=== PATIENT | female | born 1955 | race Caucasian/White ===

== ENCOUNTER → 2022-06-04 09:00 | Outpatient (BNVA) | payer MEDICARE, BC, SELFPAY | PROVIDERS: PCP Family Medicine; Visit Provider Nurse Practitioner Family | DX: R06.83 Snoring (principal); R40.0 Somnolence; M62.838 Other muscle spasm; Z79.899 Other long term (current) drug therapy | CPT/HCPCS: 99202 ==

== ENCOUNTER → 2022-07-06 12:56 | Outpatient (REF) | payer MEDICARE, SELFPAY | LOC: HO.SL 12:56 | PROVIDERS: PCP Family Medicine; Visit Provider Nurse Practitioner Family | DX: R06.83 Snoring (principal); G47.33 Obstructive sleep apnea (adult) (pediatric); G47.10 Hypersomnia, unspecified | CPT/HCPCS: 95806 ==

== ENCOUNTER → 2022-12-07 10:38 | Outpatient (BNVA) | payer MEDICARE, SELFPAY | PROVIDERS: PCP Family Medicine; Visit Provider Nurse Practitioner Family | DX: M62.838 Other muscle spasm (principal); R06.83 Snoring; G47.30 Sleep apnea, unspecified | CPT/HCPCS: Q3014 ==

== ENCOUNTER → 2024-04-19 01:32 | Outpatient (BNV) | payer MEDICARE, SELFPAY | PROVIDERS: Visit Provider Psychiatry & Neurology Neurology | DX: G47.30 Sleep apnea, unspecified (principal); G47.10 Hypersomnia, unspecified; G35 Multiple sclerosis; R40.0 Somnolence | CPT/HCPCS: 95810 ==

== ENCOUNTER → 2024-04-19 19:30 | Outpatient (REF) | payer MEDICARE, SELFPAY | LOC: HO.SL 19:30 | PROVIDERS: Visit Provider Nurse Practitioner Family | DX: G47.30 Sleep apnea, unspecified (principal); G47.10 Hypersomnia, unspecified; R40.0 Somnolence; G35 Multiple sclerosis | CPT/HCPCS: 95810 ==

== ENCOUNTER 2024-07-05 07:41 | Outpatient (AMB) | payer MEDICARE, SELFPAY ==
--- NOTE | 2024-07-05 07:36 | A.OFFVIS_ITS ---
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 she is doing well an dis compliant . It helps her night time sleep and has improved her daytime sleepiness. The home sleep study result was significant for a mild degree of sleep apnea. The AHI was 11/hr and oxygen yesica was 88%. Patient takes gabapentin 150-300 mg, PRN for leg spasm and neuropathy, it usually helps her sleep better. she stopped baclofen ? Pt is followed by [facility] for MS management. [facility] Surgical History Hx of appendectomy Family History Father No problems noted. Mother Asthma Social History Household Members: Spouse Housing: House Alcohol intake: current Patient Tobacco Use Status: Never used Tobacco Review of Systems ENT Reports Normal hearing present Neuro Reports Normal hearing present Physical Exam Vital Signs: Last Vital Signs Pulse 84 07/05/24 07:45 BP 118/70 07/05/24 07:45 Pulse Ox 100 07/05/24 07:45 Oxygen Delivery Method Room Air 07/05/24 07:45 BMI result Body Mass Index 25.4 Const General: cooperative and tired appearing Orientation/consciousness: patient oriented x3 Resp Effort & Inspection: normal respiratory effort and able to speak in complete sentences Neuro Other: left foot drop wears a AFO and gait - high steppage General: patient oriented x3 Cranial nerves: Yes Normal facial strength present and Yes Normal hearing present Deep tendon reflexes (DTR's): Right triceps reflex intensity grade: 2+, Left tr iceps reflex intensity grade: 2+, Rt Biceps (C5, C6): 2+, Left biceps reflex intensity grade: 2+, Right brachioradialis reflex intensity grade: 2+, Left brachioradialis reflex intensity grade: 2+, Right patellar reflex intensity grade: 3+ and Left patellar reflex intensity grade: 3+ Assessment & Plan Assessment & Plan (1) Sleep apnea: Comment: Mild degree of sleep apnea. The AHI was 11/hr and oxygen yesica was 88%. Code(s): G47.30 - Sleep apnea, unspecified Category: Medical (2) Muscle spasm of left lower extremity: Code(s): M62.838 - Other muscle spasm Category: Medical (3) Multiple sclerosis: Code(s): G35 - Multiple sclerosis Category: Medical Plan Continue AutoPAP 5-20 cm of water . Compliance stress I suggested to take gabpentin 300mg qhs more consistently F/u with MS center Coding Level of Care Code Est Pt Level 4 (99929) Diagnoses Sleep apnea G47.30 Muscle spasm of left lower extremity M62.838 Multiple sclerosis G35
[2024-07-05 07:45] VITALS: BP 118/70; PULSE 84; O2SAT 100; BMI 25.4
== END 2024-07-05 08:05 | disposition home or self-care (01) ==
PROVIDERS: Visit Provider Psychiatry & Neurology Neurology
DX: G47.30 Sleep apnea, unspecified (principal); M62.838 Other muscle spasm; G35 Multiple sclerosis
CPT/HCPCS: 99214

== ENCOUNTER → 2024-07-05 07:41 | Outpatient (BNVA) | payer MEDICARE, SELFPAY | PROVIDERS: Visit Provider Psychiatry & Neurology Neurology | DX: G47.30 Sleep apnea, unspecified (principal); M62.838 Other muscle spasm; G35 Multiple sclerosis | CPT/HCPCS: 99212 ==

== ENCOUNTER 2024-12-13 10:23 | Outpatient (AMB) | payer MEDICARE, SELFPAY ==
[2024-12-13 10:47] VITALS: PULSE 83; O2SAT 98; BMI 25.4
--- NOTE | 2024-12-13 10:47 | A.OFFVIS_ITS ---
Vital Signs 12/13/24 10:47 Height 5 ft 3 in Weight 143 lb 4 oz BMI 25.4 Pulse 83 Pulse Source Pulse Oximeter Pulse Oximetry (%) 98 Oxygen Delivery Method Room Air Intake Visit Reasons: follow up GHANSHYAM Intake Note: Patient present follow up Sleep/muscle spasms. Compliance in chart Allergies penicillin G Allergy (Mild, Verified 12/13/24 10:50) Hives Sulfa (Sulfonamide Antibiotics) Allergy (Mild, Verified 12/13/24 10:50) Hives HPI Comments Details: 69 y/o female patient presents for follow up of neuropathy. HST was significant for mild sleep apnea, AHI was 11 and Oxygen [place] to 88%. She is on AutoPAP 5-20 cm of water and uses her CPAP daily. She is doing well with her sleep compliance. She c/o spasms of the L. feet, calf and thigh muscle, she is taking 300mg Gabapentin and 10mg Baclofen TID. She says the Baclofen and Tizanidine previously tried is not effective. The Gabapentin helps her to sleep at night and the CPAP use has improved her daytime fatigue. She is up after 2 hours of sleep, and she gets up twice a night. She walks for about 10 min and stretches her legs as needed mainly the L>R. She has foot drop, heat and cold trigger her L. leg to spasm. Her MRI did show lesions on the brain and she was diagnosed with MS in The home sleep study result was significant for a mild degree of sleep apnea. She cleans her mask, changes the filters and fills the reservoir with water as needed. Pt is followed by [facility] for MS management, she doesn't want to do infusion at this time. Risk vs. Benefit, she thinks the SE were not worth the therapuetic results. [facility] V[facility]ctor Sherman PCP - [facility] Surgical History Hx of appendectomy Family History Father No problems noted. Mother Asthma Social History Household Members: Spouse Housing: House Alcohol intake: current Patient Tobacco Use Status: Never used Tobacco Review of Systems ENT Reports Normal hearing present Neuro Reports Normal hearing present Physical Exam Vital Signs: Last Vital Signs Pulse 83 12/13/24 10:47 Pulse Ox 98 12/13/24 10:47 Oxygen Delivery Method Room Air 12/13/24 10:47 BMI result Body Mass Index 25.4 Const General: cooperative and tired appearing Orientation/consciousness: patient oriented x3 Resp Effort & Inspection: normal respiratory effort and able to speak in complete sentences Neuro Other: left foot drop wears a AFO and gait - high steppage General: patient oriented x3 Cranial nerves: Yes Normal facial strength present and Yes Normal hearing present Deep tendon reflexes (DTR's): Right triceps reflex intensity grade: 2+, Left triceps reflex intensity grade: 2+, Rt Biceps (C5, C6): 2+, Left biceps reflex intensity grade: 2+, Right brachioradialis reflex intensity grade: 2+, Left brachioradialis reflex intensity grade: 2+, Right patellar reflex intensity grade: 3+ and Left patellar reflex intensity grade: 3+ Results Reviewed Results Reviewed: GHANSHYAM Compliance Report 09/2024- 12/2024 >4 hours use 88 days and 7hours and 30 min Press [id number] Leaks 7.2 AHI is 1.0 Assessment & Plan Assessment & Plan (1) Fatigue due to sleep pattern disturbance: Code(s): R53.83 - Other fatigue; G47.9 - Sleep disorder, unspecified Category: Medical (2) Muscle spasm of left lower extremity: Code(s): M62.838 - Other muscle spasm Category: Medical Plan PLMD / RLS/ Spasms of L leg, Increase Gabapentin from 300mg PO at bedtime to 400mg PO at bedtime. MS MRI shows White matter lesions on the brain, she is followed by the [facility]. Labs to r/o Deficiencies? Folate B6 / B12 / D3- Iron Foot drop? Will consider Biopsy of L. gastrocnemius. Orders: Orders Vitamin D 25-OH Total Today G47.9 - Sleep disorder, unspecified, R53.83 - Other fatigue Ferritin Today G47.9 - Sleep disorder, unspecified, R53.83 - Other fatigue Homocysteine Today G47.9 - Sleep disorder, unspecified, R53.83 - Other fatigue Vitamin B12 and Folate Today G47.9 - Sleep disorder, unspecified, R53.83 - O ther fatigue IRON PROFILE Today G47.9 - Sleep disorder, unspecified, R53.83 - Other fatigue Methylmalonic Acid Today G47.9 - Sleep disorder, unspecified, R53.83 - Other fatigue Comprehensive Met. Panel Today G47.9 - Sleep disorder, unspecified, R53.83 - Other fatigue Complete Blood Count no Diff Today G47.9 - Sleep disorder, unspecified, R53.83 - Other fatigue Medications: New gabapentin Take this 100mg capsule along with the 300mg for a total of 400mg PO daily at bedtime. 100 mg PO BEDTIME 90 days 90 caps 0RF Leg spasms MDD 400mg G47.9 - Sleep disorder, unspecified, M62.838 - Other muscle spasm, R53.83 - Other fatigue Patient Instructions: Sleep Hygiene sleep in a dark cool environment temperatures should be below 68 degrees and no devices in bed. May read in bed, try weighted blanket for spasm or cramps. Start Magnesium 400mg daily at bedtime and Pyridoxine 200mg daily at bedtime once your labs are completed. F[place] [facility] [place] [facility] for you. Will consider biopsy Coding Level of Care Code Est Pt Level 4 (51344) Diagnoses Fatigue due to sleep pattern disturbance R53.83; G47.9 Muscle spasm of left lower extremity M62.838 Time Spent (min) 35
--- OUTSIDE RECORDS SUMMARY | 2024-12-13 12:19 | XMS_ITS | Continuity of Care Document ---
Author Organization [facility], , [facility], OFFICE Address [address] [place] [address] Care Team Providers Care Web Editor Name Role Phone CHANTE BROWN Phys. Med. & Rehab Unavailable ARIE SHERMAN Primary Care Provider Unavailab le [facility] OTHER ZHANG VIERA Neurologist [phone] Assessment Encounter Date Assessment Date Assessment LastModified by Organization Details LastModified Time 11/21/2024 11/21/2024 We reviewed your chronic medical conditions and updated your plan for management. Please review instructions below. We have discussed your personal goals and discussed how to reach your goals. Please reach out to us via the Portal or phone if you have questions about your chronic conditions or if you or your caregivers require assistance in meeting your goals. Please visit our website [employer] for more patient resources. As part of your care plan, we will help coordinate your ongoing medical needs, arrange for durable medical equipment, renew prescriptions and necessary prior authorizations, facilitate getting referrals and collaborating with specialist, referrals for VNA services. Not available 11/21/2024 08:56:50 Plan of Treatment Reminders Order Date Submit Date Provider Last Modified By Organization Details Last Modified Time Details Appointments Mammog jessie, Screen ing 2024 10:30A M [facility] Mammography Not available Not available Not available Follow Up, 15 2024 08:15A M Arie Sherman MD Not available Not available Not available LAB Follow -Up 2025 08:35A M [facility] Lab Not available Not available Not available [facility] Visit 30 2025 11:00A Mariel Sherman MD Not available Not available Not available Lab lipid panel, serum [address] [facility], [address] [place] [address], [id number], 11/21/2024 09:10:35 CMP, serum or plasma [address] [facility], [address] [place] [address], [id number], 11/21/2024 09:10:35 Referral None record ed. Procedures None record ed. Surgeries None record ed. Imaging None record ed. Medication Orders buprop ion HCl XL 150 mg 24 hr tablet , extend ed releas e 2024 025 [id number], [address] [place] [address], [id number], 11/21/2024 08:59:05 Patient TargetsNo targets recorded. Patient Instructions Encounter Date Encounter Id Patient Instructions Last Modified By Organization Details Last Modified Time 11/21/2024 [id number] -Reduce the bupropion from 300mg daily to 150mg -After 21 days on the 150mg, you can try stopping it -Follow-up in 8-10 weeks to see how you're doing -If at any point the mood worsens dramatically, restart the med and let me -Look into grab bars for the bathroom - I like people to get these before they need them -You can upload a copy of your proxy into your portal -You are due for colonoscopy in May of this year -Fasting labwork (nothing to eat/drink for 12 hours prior to appointment except water) in 1 year with wellness visit [place] [id number] Not available 11/21/2024 09:11:06 Reason for Referral None Reported. Problems Name Problem SNOMED Code Status Onset Date Resolution Date Notes Provider Name and Address Organization Details Recorded Time Sciatica 32647653 Active Not Available [facility] 3 12:06:48 Mixed hyperlip idemia 424857898 Active Not Available [facility] 3 12:06:48 Hip pain 63941651 Completed 08/29/2013 Not Available [facility] 3 02:01:33 Herpes simplex 48784022 Active 2015 Not Available [facility] 3 12:06:48 Senile hyperker atosis 716923605 Active 2016 Not Available [facility] 3 12:06:48 Myelitis 79064584 Active 2016 L leg - seeing Dr. Miguel montez Not Available [facility] 3 12:06:48 Rosacea 877663786 Active 2016 Not Available [facility] 3 12:06:48 Menopaus al symptom 39282044 Active 2017 Not Available [facility] 3 12:06:48 Mild major depressi on, single episode 10122028 Active 2019 Coded 08/29/19 office visit Not Available [facility] 3 12:06:48 Polyp of colon 77214519 Active 2014 Not Available [facility] 3 12:06:48 Osteopen ia 054996059 Active 2022 Arie Sherman [address] [place] [address], [phone] , [facility] 5 09:12:18 Bilatera l carpal tunnel syndrome [id number] 417689 Active 2024 Arie Sherman [address] [place], [address] , [facility] 5 09:12:15 Problem Notes None recorded. Procedures Surgical History Date Name Laterality Status Provider Name and Address Organization Details Recorded Time 11/21/19 25 Medicare Wellness Visit completed [facility] 11/21/2024 08:25:22 11/21/19 25 Cardiovascular disease risk reduction counseling completed [facility] 11/21/2024 08:25:23 03/29/20 24 Cerumen Removal - Irrigation/Lavage completed Arie Sherman [address] [place], [address] 03/29/2024 08:59:56 09/27/20 23 Medicare Wellness Visit completed [facility] 09/26/2023 16:55:49 09/27/20 23 Cardiovascular disease risk reduction counseling completed Arie Sherman [address] [place], [address], [facility] 09/27/2023 10:40:07 06/07/20 22 Medicare Wellness Visit completed Daysi baron [facility] 06/07/2022 09:36:04 06/07/20 22 Alcohol use screening completed Daysi baron [facility] 06/07/2022 09:36:04 06/07/20 22 Cardiovascular disease risk reduction counseling completed Daysi baron [facility] 06/07/2022 09:36:04 06/02/20 21 Medicare Wellness Visit completed Gladis Evans [facility] 06/01/2021 11:16:01 06/02/20 21 prevention-cardiov ascular risk reduction counseling completed Gladis Evans [facility] 06/01/2021 11:16:01 06/02/20 21 prevention-annual alcohol misuse screening completed Gladis Evans [facility] 06/01/2021 11:16:01 05/27/20 20 Medicare Wellness Visit completed Tangela [facility] 05/27/2020 11:31:29 05/27/20 20 prevention-cardiov ascular risk reduction counseling completed Tangela [facility] 05/27/2020 11:31:29 05/27/20 20 prevention-annual alcohol misuse screening completed Tangela [facility] 05/27/2020 11:31:29 08/29/20 19 Destruction of skin lesion completed Arie Sherman [address] [place], [address], [facility] 08/29/2019 10:52:04 02/20/20 19 Medicare Wellness Visit completed Cristina Holley LPN [facility] 02/19/2019 09:50:02 09/25/20 18 Shave Biopsy completed Arie Sherman [address] [place], [address], [facility] 09/25/2018 15:33:06 09/25/20 18 Skin Tag Removal (up to 15) completed Arie Sherman [address] [place], [address], [facility] 09/25/2018 15:32:08 02/17/20 18 Medicare Wellness Visit completed Nettie [facility] 02/16/2018 14:55:45 09/26/20 17 81644: Therapeutic Exercise completed Chante Brown, PT [address] [place], [address], [facility] 09/26/2017 10:21:01 09/26/20 17 81920: Manual Therapy completed Chante Brown, PT [address] [place], [address], [facility] 09/26/2017 10:21:04 09/15/20 17 12912: Therapeutic Exercise completed Chante Brown, PT [address] [place], [address], [facility] 09/15/2017 10:17:58 09/15/20 17 75565: Manual Therapy completed Chante Brown, PT [address] [place], [address], [facility] 09/15/2017 10:18:02 09/12/20 17 23178: Therapeutic Exercise completed Chante Brown, PT [address] [place], [address], [facility] 09/16/2017 12:15:14 09/12/20 17 88904: Manual Therapy completed Chante Brown, PT [address] [place], [address], [facility] 09/16/2017 12:15:20 08/29/20 17 84318: Therapeutic Exercise completed Chante Brown, PT [address] [place], [address], [facility] 08/29/2017 14:45:30 08/29/20 17 73802: Manual Therapy completed Chante Brown, PT [address] [place], [address], [facility] 08/29/2017 14:45:23 08/26/20 17 25746: Therapeutic Exercise completed Chante Brown, PT [address] [place], [address], [facility] 08/26/2017 14:14:25 08/26/20 17 27112: Manual Therapy completed Chante Brown, PT [address] [place], [address], [facility] 08/26/2017 14:14:30 08/18/20 17 65615: Therapeutic Exercise completed Chante Brown, PT [address] [place], [address], [facility] 08/22/2017 22:15:40 08/18/20 17 52823: Manual Therapy completed Chante Brown, PT [address] [place], [address], [facility] 08/22/2017 22:15:46 08/15/20 17 Physical Activity Counselling completed Chante Brown, PT [address] [place], [address], [facility] 08/22/2017 21:38:19 08/15/20 17 75085: PT Eval Low Complexity completed Chante Brown, PT [address] [place], [address], [facility] 08/22/2017 21:38:23 12/06/19 14 Shave Biopsy completed Arie Sherman [address] [place] [address], [address], [facility] 12/06/2013 15:32:24 01/20/20 12 Skin Tag Removal (up to 15) completed Arie Sherman [address] [place] [address], [address], [facility] 01/20/2012 17:56:02 01/20/20 12 Destruction of skin lesion completed Arie Sherman [address] [place] [address], [address], [facility] 01/20/2012 17:18:53 Imaging Results None recorded. Procedure Notes None recorded. Medical Equipment None Reported. Allergies Allergen ID Allergen Name Allergen Category Reaction Reaction Severity Criticality Documentation Date Start Date Code Code System Note Provider Name and Address Organization Details Recorded Time 024114 citalopra m medicatio n other mild Not available 08/14/2012 2556 RxNorm irrit abili ty, insom slick Arie Maritza Sherman [address] [facility], [place], [address], [facility] 2 13:46:46 592836 duloxetin e medicatio n other mild Not available 02/19/2019 22475 RxNorm const ipati on and weigh t gain Arie Maritza Sherman [address] [facility], [place], [address], [facility] 0 12:07:11 74567 penicilli n G Not available hives Not available Not available 06/10/2011 7980 RxNorm Not Available [facility] 1 06:05:41 81141 Substance with sulfonami de structure and antibacte rial mechanism of action (substanc e) medicatio n hives Not available Not available 06/10/2011 40666 8003 SNOMED Not Available [facility] 1 06:05:41 12015 Lipitor medicatio n hives Not available Not available 10/13/2011 78587 5 [facility] [place] 2 14:52:25 Medications Name Sig Start Date Stop Date Status Note LastModified by Organization Details LastModified Time Prescript ion - Renewal 07/26 completed Not Available Not Available Not Available Prescript ion - Prior Authoriza tion Request 12/07 completed Not Available Not Available Not Available latanopro st 0.005 % eye drops INSTILL 1 DROP INTO BOTH EYES DAILY AT BEDTIME active Not Available Not Available No t Available venlafaxi ne ER 37.5 mg capsule,e xtended release 24 hr take 1 capsule by mouth once daily FOR 7 DAYS active Not Available Not Available No t Available venlafaxi ne ER 75 mg capsule,e xtended release 24 hr TAKE 1 CAPSULE DAILY 2014 active Not Available Not Available Not Avai lable gabapenti n 600 mg tablet TAKE 1 TABLET 3 TIMES A DAY active Not Available Not Available No t Available ibuprofen 800 mg tablet 02/16 completed not using Not Available Not Available Not Available valacyclo vir 1 gram tablet Take 1 tablet every day by oral route for 90 days. 02/16 completed Not Available Not Available Not Available valacyclo vir 500 mg tablet TAKE 1 TABLET DAILY active Not Available Not Available No t Available ciproflox acin 500 mg tablet Take 1 tablet every 12 hours by oral route for 7 days. 06/22 completed Not Available Not Available Not Available oxycodone -acetamin ophen 5 mg-325 mg tablet 02/16 completed Stopped JG 11-8-17 Not Available Not Available Not Available estradiol 0.025 mg/24 hr weekly transderm al patch APPLY 2 PATCH TO SKIN TWICE A WEEK 2023 active Not Available Not Available Not Avai lable metronida zole 0.75 % lotion APPLY A THIN LAYER TO THE AFFECTED AREA(S) BY TOPICAL ROUTE 2 TIMES PER DAY IN THE MORNING AND EVENING 04/05 completed not using Not Available Not Available Not Available baclofen 10 mg tablet 07/14 completed not current 07/14/24 tb Not Available Not Available Not Available benzonata te 100 mg capsule TAKE 1 CAPSULE BY MOUTH THREE TIMES DAILY NEEDED 09/27 completed Not Available Not Available Not Available omeprazol e 20 mg capsule,d elayed release TAKE 1 CAPSULE DAILY 07/13 completed Not taking PINO Not Available Not Available Not Available ergocalci ferol (vitamin D2) 1,250 mcg (50,000 unit) capsule TAKE 1 CAPSULE BY MOUTH 1 TIME A WEEK 11/21 completed Not Available Not Available Not Available loratadin e 10 mg tablet TAKE 1 TABLET BY MOUTH EVERY DAY 09/27 completed Not Available Not Available Not Available diazepam 5 mg tablet 02/15 completed Not Available Not Available Not Available progester one micronize d 100 mg capsule TAKE 1 CAPSULE DAILY active Not Available Not Available No t Available Vivelle-D ot 0.025 mg/24 hr transderm al patch APPLY TWO PATCH TO SKIN TWICE A WEEK active Not Available Not Available No t Available azelaic acid 15 % topical gel APPLY A THIN LAYER TO THE AFFECTED AREA(S) BY TOPICAL ROUTE 2 TIMES PER DAY active Not taking 12/07/22- ad Not Available Not Available Not Available Restasis 0.05 % eye drops in a dropperet te Instill 1 drop every 12 hours by ophthalm ic route. active Not Available Not Available No t Available rosuvasta tin 40 mg tablet TAKE 1 TABLET DAILY active Not Available Not Available No t Available Crestor 20 mg tablet Take 1 tablet by mouth daily active Not Available Not Available No t Available bupropion HCl XL 300 mg 24 hr tablet, extended release TAKE 1 TABLET DAILY 11/21 completed Not Available Not Available Not Available bupropion HCl XL 150 mg 24 hr tablet, extended release TAKE 1 TABLET BY MOUTH EVERY DAY active Not Available Not Available No t Available nitrofura ntoin monohydra te/macroc rystals 100 mg capsule TAKE 1 CAPSULE BY MOUTH EVERY 12 HOURS FOR 5 DAYS 12/07 completed Not Available Not Available Not Available duloxetin e 20 mg capsule,d elayed release Take 1 capsule twice a day by oral route. 12/26 completed Not Available Not Available Not Available duloxetin e 30 mg capsule,d elayed release take 1 capsule by mouth twice a day active Not Available Not Available No t Available tizanidin e 2 mg capsule TAKE 1 CAPSULE BY MOUTH AT BEDTIME 09/27 completed Not Available Not Available Not Available Lyrica 50 mg capsule 04/24 completed Stopped taking after a couple weeks. Not Available Not Available Not Available chlorhexi dine gluconate 0.12 % mouthwash 02/16 completed Not Available Not Available Not Available estradiol 0.25mg active Not Available Not Katy ilable Not Available progester one 1.25mg active Not Available Not Available Not Available Aspir-81 active Not Available Not Avai lable Not Available Vitamin D3 active OTC Not Available Not Available Not Available Crestor 20mg qd active Not Available Not Avai lable Not Available Zostavax (PF) 19,400 unit/0.65 mL subcutane ous suspensio n inject contents of 1 vial subcutan eously active Not Available Not Available No t Available venlafaxi ne ER 75 mg tablet,ex tended release 24 hr Take 1 tablet every day by oral route for 30 days. 2011 active Not Available Not Available Not Avai lable dalfampri dine ER 10 mg tablet,ex tended release,1 2 hr TAKE 1 TABLET BY MOUTH EVERY 12 HOURS 08/17 completed has not been taking 06/07/22 KRB Not Available Not Available Not Available Fluarix Quad [id number] (PF) 60 mcg (15 mcg x 4)/0.5 mL IM syringe inject 0.5 millilit er intramus cularly 07/26 completed Not Available Not Available Not Available Shingrix (PF) 50 mcg/0.5 mL intramusc ular suspensio n, kit 04/24 completed Not Available Not Available Not Available Plenvu 140 gram-9 gram-5.2 gram powder packs UTD. PATIENT HAS DIRECTIO NS 06/02 completed Not Available Not Available Not Available BinaxNOW COVID-19 Ag Self Test kit TEST DIRECTED TODAY 02/21 completed Not Available Not Available Not Available Paxlovid 300 mg (150 mg x 2)-100 mg tablets in a dose pack TK 2 NIRMATRE LVIR TS AND 1 RITONAVI R T TOGETHER PO BID FOR 5 DAYS 11/21 completed Not Available Not Available Not Available Vitals Date Recorded Body height Body mass index (BMI) Body weight Oxygen saturation Oxygen saturation in Arterial blood by Pulse oximetry Heart rate Systolic blood pressure Diastolic blood pressure Provider Name and Address Organization Details Last Updated DateTime 5 159.39 cm 25.4 kg/m2 67876.5 2 g 99 % 99 % 82 /min 122 mm[Hg] 80 mm[Hg] Ros [facility] 5 08:42:50 Social History Question Answer Notes LastModified by Organizat ion Details LastModified Time Tobacco Smoking Status Never Smoker Not Available [facility] 08/26/2011 05:00:03 What Is Your Level Of Alcohol Consumption? Occasional 1-2 Drinks Monthly [email or web address] Information not available 11/21/2024 Do You Wear A Helmet When Biking? No N/a [email or web address] Information not available 05/27/2020 What Is Your Level Of Caffeine Consumption? Moderate 1 Cup Daily Information not available 06/07/2022 How Much Tobacco Do You Chew? None Information not available 01/26/2016 Are You Currently Employed? No Information not available 06/07/2022 What Type Of Diet Are You Following? REGULAR Veggies And Some Fruits, Fish, Chicken Information not available 09/27/2023 Which Illicit Or Recreational Drugs Have You Used? None Information not available 01/26/2016 What Is The Highest Grade Or Level Of School You Have Completed Or The Highest Degree You Have Received? 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 No Lives With Information not available 06/07/2022 Are There Any Guns Present In Your Home? No Information not available 08/26/2011 Do You Use Insect Repellent Routinely? Yes Information not available 06/07/2022 MOLST Form Signed And In Chart 08/29/2018 Information not available 09/04/2018 CCM Consent Discussion 08/29/2018 [email or web address] Information not available 09/04/2018 What Was The Date Of Your Most Recent Tobacco Screening? 07/14/2024 [email or web address] Information not available 07/14/2024 How Many Children Do You Have? 0 Information not available 08/26/2011 Are There Any Occupational Health Risks Where You Work? None Information not available 01/26/2016 What Is Your Relationship Status? Brandon Ivan (04/26/14) Information not available 06/07/2022 Do You Use Your Seat Belt Or Car Seat Routinely? Yes Information not available 06/07/2022 Are You Sexually Active? Yes Information not available 01/26/2016 Do You Have Smoke And Carbon Monoxide Detectors In Your Home? Yes Information not available 06/07/2022 Are You Passively Exposed To Smoke? No Information not available 06/07/2022 Do You Use Sunscreen Routinely? Yes Information not available 01/26/2016 Do You Or Have You Ever Used Any Other Forms Of Tobacco Or Nicotine? No Information not available 06/07/2022 Sex: Female Functional Status Question Answer Note LastModified by Organizat ion Details LastModified Time What is your exercise level? Moderate Strength for Life 3x weekly Meditation/min dfulness: none currently Information not available 11/21/2024 Mental Status None recorded. Family History Relationship Description Onset Age of this Age Resolved Age Notes LastModified by Organization Details LastModified Time Father Heart disease 55 CABG Not available 01/25 09:05:44 Father Glaucoma Not availab le 01/26/2016 09:05:44 Father Cerebrovascu lar accident 70 Not available 10:24:17 Father Hyperlipidem ia Not available 01/25 09:05:44 Father Congestive heart failure 79 Not available 01/25 09:05:44 Mother Asthma Not available 01/26/2016 09:05:44 Mother Myocardial infarction 84 Not available 01/08 09:05:44 Brother Hyperlipidem ia Not available 01/25 09:05:44 Brother Myocardial infarction 42 Not available 01/08 09:05:44 Notes:No hx of breast/colon CA or DM Medical History Condition Response NEUROLOGIC Y Chronic Neck Pain Y Hyperlipidemia Y Depression Y Glaucoma Y OTHER Y Gynecological History Statement/Question Response Menses Monthly N History of Abnormal Pap Y Age at Menarche 12 LMP Obstetrics History GPAL:G 0 P 0 0 0 0 Immunizations Vaccine Type Date Status Note Provider Nam e and Address Organization Details Recorded Time Influenza, split virus, trivalent, preservative 2 completed Not Available [facility] 10/27/2019 02:18:34 Influenza, split virus, trivalent, PF 3 completed Not Available [facility] 10/27/2019 02:34:58 Tdap 1 completed Not Available [facility] 10/20/2023 17:04:30 Tdap 9 completed Not Available [facility] 10/20/2023 17:04:30 Influenza, split virus, trivalent, PF 4 completed Not Available [facility] 10/27/2019 02:28:18 Influenza, split virus, quadrivalent, PF 5 completed Not Available [facility] 10/27/2019 02:19:52 Influenza, split virus, quadrivalent, PF 7 completed Not Available [facility] 10/27/2019 02:25:33 pneumococcal polysaccharide PPV23 8 completed Not Available [facility] 10/27/2019 02:37:57 Influenza, high-dose, trivalent, PF 8 completed Not Available [facility] 10/27/2019 02:23:29 Influenza, split virus, quadrivalent, preservative 6 completed Not Available [facility] 10/20/2023 17:04:29 Pneumococcal conjugate PCV 13 9 completed Not Available [facility] 10/27/2019 02:34:54 Influenza, high-dose, trivalent, PF 9 completed Not Available [facility] 10/27/2019 02:24:04 Influenza, high-dose, quadrivalent, PF 0 completed Shabnam Mayfield LPN null, [facility] 07/25/2020 11:47:52 Td (adult), 2 Lf tetanus toxoid, preservative free, adsorbed 1 completed Arie Sherman [address] [place] [address], [address], [facility] 06/02/2021 09:22:49 Influenza, high-dose, quadrivalent, PF 1 completed Gladis Evans MA null, [facility] 07/13/2021 09:30:25 Influenza, high-dose, quadrivalent, PF 2 completed [place] Alcantara null, [facility] 08/02/2022 10:26:51 Influenza, high-dose, quadrivalent, PF 3 completed ARBEN Zhang, [facility] 06/24/2023 12:17:43 COVID-19, mRNA, LNP-S, PF, 100 mcg/0.5mL dose or 50 mcg/0.25mL dose 1 completed Not Available [facility] 10/20/2023 17:04:30 COVID-19, mRNA, LNP-S, PF, 100 mcg/0.5mL dose or 50 mcg/0.25mL dose 1 completed Not Available [facility] 10/20/2023 17:04:30 zoster recombinant 9 completed Not Available [facility] 10/20/2023 17:04:30 zoster recombinant 9 completed Not Available [facility] 10/20/2023 17:04:30 zoster recombinant 4 completed Not Available [facility] 10/20/2023 17:04:30 Influenza, high-dose, trivalent, PF 4 completed Paula Gonzalez LPN [facility] 07/27/2024 11:06:48 COVID-19, mRNA, LNP-S, PF, 30 mcg/0.3 mL dose 2 completed Not Available [facility] [facility] 10/20/2023 17:04:30 COVID-19, mRNA, LNP-S, PF, 100 mcg/0.5mL dose or 50 mcg/0.25mL dose 1 completed Not Available [facility] 10/20/2023 17:04:30 COVID-19, mRNA, LNP-S, bivalent, PF, 30 mcg/0.3 mL dose 2 completed Not Available [facility] 10/20/2023 17:04:30 RSV, recombinant, protein subunit RSVpreF, adjuvant reconstituted, 0.5 mL, PF 3 completed Not Available [facility] 10/20/2023 17:04:30 Past Encounters Encounter ID Performer Location Encounter Start Date Encounter Closed Date Diagnosis/Indication Diagnosis SNOMED-CT Code Diagnosis ICD10 Code Diagnosis Note [id number] Arie Sherman FP, [facility] [place], OFFICE [address] [place] [address] 11/21/2024 08:18:48 11/21/2024 09:24:45 Adult health examination 106767102 Z00.00 Medicare Health Screening Schedule Bone Density Test {{N/A DUE Done}} {{Due Again}}{{d eclined}}D one 2022 with osteopenia - due 7210-1221{ {Patient and provider discussed no further bone density screening} }Immunizat ions {{up to date}} {{prevnar done* prev fred due now prevna r declined}} {{Pneumocc al23 done* pneu moccal 23 done pneum occal due next year pneum occoal 23 declined}} {{Td*}} {{Tdap}} {{done* du e now due next year decli kim}}done hingr ix {{done* du e now declin ed}}Influe nza {{do yearly in fall* done declined} }Colon Cancer Screening {{yearly stool for blood test done yearl y stool for blood test due}}{{col onoscopy done* next colonoscop y due}}2019{ {patient and provider discussed and agreed no further colon cancer screening} }Lung Cancer Screening {{N/A*}} ((done due }} {{Patient and provider discussed and patient declined p atient and provider discussed and have agreed no further testing}}B reast Cancer Screening{ {N/A}} {{Discusse d with shared decion making*}} {{patient prefers yearly mammograms * patient prefers everyother year mammograms patient declines mammogram screening patient and provider discussed and agreed no further screening} }Cervical Cancer Screening {{N/A}} {{Patient does not need further pap testing*}} {{patient requires further pap testing due to increased risk}}{{re cent HPV exposure D ES exposure o ther high risk}} {{Pap due}}Prost ate Cancer Screening {{N/A*}} {{informed consent regarding prostate screening with psa was discussed} }{{patient choose to have PSA Patien t choose to not have PSA Patien t and provider discussed no further PSA screening indicated} }Abdominal Aneurysm Screen {{N/A*}} {{done due declined Patient and provider discussed no further AAA screening indicated} } Depression screening 171 076117 Z13.31 depression screening tool administer ed Screening for alcohol abuse [id number] Z13.39 Alcohol use screening tool administer ed Counseled by member of primary health care team [id number] Z71.9 Today we discussed ways to reduce your 10-year cardiovasc ular disease risk. Things that decrease risk for cardiovasc ular events include eating a diet high in fiber (fruits and vegetables ) and low in simple carbohydra miguel (bread, rice, pasta, alcohol, potatoes), decreasing processed foods, limiting juice and alcohol, limiting saturated fats (butter, ice cream, and cheeses), and adding regular daily activity. Having blood pressure that is <130/80. Having well controlled cholestero l (LDL and triglyceri bailey) by eating a healthy diet and taking medication s when necessary. Managing daily stress with sitting meditation s or movement meditation s like yoga/jodie chi (or walking meditation s) reduces the risk of heart attack, stroke, type 2 diabetes, and dementia. Mild major depression, single episode [id number] F32.0 Stable on bupropion but pt is wondering if she still needs this. Will plan to taper as below. Mixed hyperlipidemia 267 471957 E78.2 Improved on recent test. Will plan on resting annually. Myelitis [id number] G95.9 To f/u with Dr. Gabrielle chirinos as scheduled. To work with PT at regular intervals. Bilateral carpal tunnel syndrome [id number] [id number] G56.03 Currently managed by braces; can call if needing OT evaluation . Senile hyperkeratosis 39 2277951 L82.1 Multiple, mostly flat. One along neck that catches on things. Could consider shave biopsy to remove the one near the neck. Health Concerns Section Related Observation LastModified by Organization Detai ls LastModified Time None Recorded Concern Status LastModified by Organization Details LastModified Time None Recorded Payers Encounter Date Sequence Insurance Name Policy Number Policy Bethea Covered Member ID Bethea Member ID Guarantor Name 11/21/2024 2 [place] [id number] Betsey Adam [id number] Betsey Adam 11/21/2024 1 [place] [employer] Betsey Adam [id number] Betsey Adam Notes Date Note Type Note Provider Name and Address Organization Details Recorded Time 5 text/html Physical Exam/FemaleReported bypatient.PHAPatient is here for a Wellness Visit. She describes her health status as good. Patient's health is the same as last year.Risk Assessment and Lifestyle Change Counseling (Medicare)Reported bypatient.Coronary Artery Disease Risk Assessment:Family History of Coronary Artery Disease; No personal history of diabetes; No history of peripheral vascular disease, AAA, or carotid disease; No personal history of coronary artery disease; Trion 10 year risk Breast Cancer Risk Assessment:No family history of breast cancer; No history of breast cancer or dcis Colon Cancer Risk Assessment:No family history of pre cancerous colon polyps or cancer Lung Cancer Risk Assessment:Never smoked; No asbestos exposure Cognitive/Behavioral Risk Assessment:No personal history of mental illness; No family history of mental illness Safety Risk Assessment:No grab bars in bathroom; Has rails on steps;History of falls 1-3 in past 12 months(one fall in the driveway); No evidence of abuse/neglect; Do you feel safe in your current relationship?YES Functional Status:Patient does not have trouble hearing the television or radio when others do not.; Patient does not have to strain or struggle to hear/understand conversations; Patient does not need help with preparing meals, transportation, shopping, taking medicine, managing finances, or other activities of daily living.; Patient does not have visual loss that interferes with daily activities; Does not live alone; Patient was not unsteady and did not take longer than 30 seconds during the timed get up and go test.;Patient reports 1 falls in the past 6 months.; 05/27/2020 Unable to assess get up and go due to VV. SD Diet:Counseled about appropriate portion size; Counseled about eating a diet low in trans and saturated fats and high in fiber, fruits and vegetables Exercise counseling:Discussed the importance of daily physical activityVMG HyperlipidemiaReported bypatient.Duration:chronic Control:well controlled; LDL has been 100-130, goal is <130; Patient understands medications are to lower cholesterol Compliance:compliant with medications Context:Nonsmoker; No ischemic heart disease; No peripheral vascular disease (22823); No diabetes; No carotid artery stenosis; family hx of hyperlipidemia with CAD Associated Symptoms:normal liver function test; no muscle pain; no fatigue; no chest discomfort; no dyspnea; no change in exercise capacity Pt comes in today for wellness but also is here for f/u depression. She is doing well on bupropion but is wondering if she still needs to take it. Pt also c/o myelitis. She see Dr. Viera at the [facility]. She is still going there every six months. Pt did go for PT for her legs and is still doing her HEP. Pt also has some skin tags and keratoses she would like checked for monitoring purposes; none of these are new or scabbed or bleeding. Pt c/o some numbness in hands overnight; right worse than left. She is wearing a brace per a friend who is an OT which has helped. Arie Sherman [address] [place] [address], [phone], [facility] 11/21/2024 09:17:51 OBGyn Episode No OBEpisode recorded.
--- OUTSIDE RECORDS SUMMARY | 2024-12-13 12:19 | XMS_ITS | Clinical Summary ---
Author Organization [address] [facility] Address [address] [place] [address] Phone Care Team Providers Care Quality Tech Name Role Phone Judith Sherman MD Primary Care Provider [phone] Allergies Active Allergy Reactions Criticality Noted Date Comments Penicillins Other 07/14/2009 hives Sulfa (Sulfonamide Antibiotics) Hives 09/10 Medications aspirin 81 mg EC tablet Take 1 tablet (81 mg total) by mouth. Active buPROPion XL (WELLBUTRIN XL) 300 mg 24 hr tablet Take 1 tablet (300 mg total) by mouth 1 (one) time each day. Active cycloSPORINE (RESTASIS) 0.05 % ophthalmic emulsion 1 drop 2 (two) times a day. Active estradioL (CLIMARA) 0.05 mg/[address] 1 patch on the skin. Active latanoprost (XALATAN) 0.005 % ophthalmic solution 1 drop every night at bedtime. Active progesterone (PROMETRIUM) 200 mg capsule Take by mouth. Active rosuvastatin (CRESTOR) 40 mg tablet 05/30/2021 Active valACYclovir (VALTREX) 500 mg tablet 05/30/2021 Active gabapentin (NEURONTIN) 600 mg tablet Take 1 tablet (600 mg total) by mouth 3 (three) times a day. 270 tablet 3 08/29/2024 Active baclofen (Lyvispah) 10 mg granules in packet Take by mouth. Active Medical History Medical History Date Comments Multiple sclerosis (CMS/HCC) DX: Multiple sclerosis (HCC) Hyperlipidemia DX:Hyperlipidemi a Glaucoma DX:Glaucoma Social History Tobacco Use Types Packs/Day Years Used Date Smoking Tobacco: Never Smokeless Tobacco: Never Tobacco Cessation:Counseling Given: Not Answered Comments Unknown Sex and Gender Information Value Date Recorded Sex Assigned at Not on file Legal Sex Female 12:03 AM EST Gender Identity Not on file Sexual Orientation Not on file Obstetrics History Last Filed Vital Signs Vital Sign Reading Time Taken Comments Blood Pressure 116/67 08/29/2024 9:12 AM EST Pulse 85 08/29/2024 9:12 AM EST Temperature 36 ??C (96.8 ??F) 08/29/2024 9:12 AM EST Respiratory Rate - - Oxygen Saturation 99% 08/29/2024 9:12 AM EST Inhaled Oxygen Concentration - - Weight 63.5 kg (140 lb) 08/29/2024 9:12 AM EST Height 162.6 cm (5' 4 ) 08/29/2024 9:12 AM EST Body Mass Index 24.03 08/29/2024 9:12 AM EST Plan of Treatment Upcoming Encounters Date Type Department Care Team (Late st Contact Info) Description 02/27/2025 8:30 AM EDT Office Visit [facility] for [facility] [address] [place] [id number] Rebecca Emanuel, DAMARI [address] [place] [address] [place] [address] Health Maintenance Due Date Last Done Comments Breast Cancer Screening 1955 Cholesterol Screening (Lipid Panel) 09/17/2022 Colorectal Cancer Screening: Colonoscopy 09/17/2022 Depression Screening 09/17/2022 Falls Risk Assessment 09/17/2022 Hepatitis C Screening 09/17/2022 Osteoporosis Screening (Bone Density Screening) 09/17/2022 Social Influencers of Health Screening 09/17/2022 Medicare Annual Wellness Visit 06/07/2023 06/07/2022 DTaP,Tdap,and Td Vaccines (4 - Td or Tdap) 06/02/2031 06/02/2021, 04/04/2011, 04/07/2009 Pneumococcal Vaccine: 50+ Years Completed 02/19/2019, 02/16/2018 Zoster Vaccines Completed 04/10/2019, 01/29/2019 RSV Immunization Patients 60+ Years Old Completed 08/12/2023 COVID-19 Vaccine Completed 06/08/2024, , 07/10/2022, Additional history exists Influenza Vaccine Completed 07/27/2024, , 08/02/2022, Additional history exists HIB Vaccines Aged Out No longer eligi ble based on patient's age to complete this topic HPV Vaccines Aged Out No longer eligi ble based on patient's age to complete this topic Hepatitis A Vaccines Aged Out No long er eligible based on patient's age to complete this topic Hepatitis B Vaccines Aged Out No long er eligible based on patient's age to complete this topic IPV Vaccines Aged Out No longer eligi ble based on patient's age to complete this topic MMR Vaccines Aged Out No longer eligi ble based on patient's age to complete this topic Meningococcal ACWY Vaccine Aged Out N o longer eligible based on patient's age to complete this topic Meningococcal B Vacine Aged Out No lo nger eligible based on patient's age to complete this topic RSV Immunization Patients Under 20 months Aged Out No longer eligible based on patient's age to complete this topic Varicella Vaccines Aged Out No longer eligible based on patient's age to complete this topic Insurance MEDICARE [facility] Advance Directives Documents on File Type Date Recorded Patient Surgical First Assistant Expl anation Health Care Decision (hx) 10/01/2011 AD LOPEZ DIRECTIVE Health Care Decision (hx) 10/01/2011 AD LOPEZ DIRECTIVE Health Care Decision (hx) 10/01/2011 AD LOPEZ DIRECTIVE Health Care Decision (hx) 10/01/2011 AD LOPEZ DIRECTIVE Health Care Decision (hx) 10/01/2011 AD LOPEZ DIRECTIVE Health Care Decision (hx) 10/01/2011 AD LOPEZ DIRECTIVE Health Care Decision (hx) 10/01/2011 AD LOPEZ DIRECTIVE Health Care Decision (hx) 10/01/2011 AD LOPEZ DIRECTIVE Health Care Decision (hx) 10/01/2011 AD LOPEZ DIRECTIVE Care Teams Quality Tech Relationship Specialty Start Date End Date Judith Sherman MD [address] [place] [address] PCP - General Family Medicine 07/30/21
--- OUTSIDE RECORDS SUMMARY | 2024-12-13 12:19 | XMS_ITS | Clinical Summary ---
Author Organization [facility] Address [address] [place] [address] Care Team Providers Care Dry Plasterer Name Role Phone Judith Sherman MD Primary Care Provider [phone] Allergies Active Allergy Reactions Criticality Noted Date Comments Penicillins Other (See Comments) 07/14/2009 hives Sulfa Antibiotics Hives 10/05/2021 Medications Medication Sig Dispensed Refills Start Date End Date Status aspirin 81 MG EC tablet Take 1 tablet (81 mg total) by mouth. 0 Active estradiol (CLIMARA) 0.05 MG/24HR Place 1 patch onto the skin. 0 Active gabapentin (NEURONTIN) 300 MG capsule Take 1 capsule (300 mg total) by mouth daily as needed. 0 Active rosuvastatin (CRESTOR) tablet 40 mg 0 05/30/2021 Active buPROPion (WELLBUTRIN XL) 300 MG 24 hr tablet Take 1 tablet (300 mg total) by mouth daily. 0 Active cycloSPORINE (RESTASIS) 0.05 % ophthalmic emulsion 1 drop 2 (two) times a day. 0 Active latanoprost (XALATAN) 0.005 % ophthalmic solution 1 drop every night at bedtime. 0 Active progesterone 200 MG CAPS Take by mouth. 0 Active baclofen (LIORESAL) 10 MG tabletIndications:Mu ltiple sclerosis (HCC) TAKE 1 TABLET 3 TIMES A DAY 270 tablet 3 10/05/2023 Active Cholecalciferol (Vitamin D-[address]) 25 MCG (1000 UT) tablet Take 1 tablet (1,000 Units total) by mouth. 0 Active Active Problems No known active problems Family History Medical History Relation Name Comments Hypertension Father Multiple sclerosis Neg Hx Relation Name Status Comments Father Social History Tobacco Use Types Packs/Day Years Used Date Smoking Tobacco: Never Tobacco Cessation:Counseling Given: Not Answered Sex and Gender Information Value Date Recorded Sex Assigned at Female 10/25/2023 11:54 AM EST Gender Identity Not on file Sexual Orientation Not on file Job Start Date Occupation Industry Not on file Not on file Not on file Last Filed Vital Signs Vital Sign Reading Time Taken Comments Blood Pressure 147/75 02/28/2024 10:31 AM EDT Pulse 95 02/28/2024 10:31 AM EDT Temperature 36.4 ??C (97.6 ??F) 02/28/2024 10:31 AM E DT Respiratory Rate 16 06/28/2023 9:56 AM EDT Oxygen Saturation 97% 02/28/2024 10:31 AM EDT Inhaled Oxygen Concentration - - Weight 60.4 kg (133 lb 3.2 oz) 02/28/2024 10:31 AM EDT Height 162.6 cm (5' 4 ) 02/28/2024 10:31 AM EDT Body Mass Index 22.86 02/28/2024 10:31 AM EDT Plan of Treatment Health Maintenance Due Date Last Done Comments Hepatitis C Screening 1955 COVID-19 Vaccine (#1) 1955 Depression Screening 1965 Preventative Health Evaluation 1971 DTap / Tdap / Td (1 - Tdap) 02/08/1972 Colon Cancer Screening (Colonoscopy) 1998 Breast Cancer Screening (Mammogram) 2003 Shingrix-Zoster Vaccine (1 of 2) 2003 Fall Risk Assessment 2018 Osteoporosis Screening (DEXA Scan) 2018 Pneumococcal Vaccine (1 of 1 - PCV) 2018 Influenza Vaccine (#1) 2024 RSV Adult > 60+ Yrs or Pregn ant (1 - 1-dose 75+ series) 02/08/2028 Hepatitis B Vaccines Aged Out No long er eligible based on patient's age to complete this topic RSV Ped < 20 months Aged Out No longe r eligible based on patient's age to complete this topic Care Teams Dry Plasterer Relationship Specialty Start Date End Date Judith Sherman MD [address] [place] [phone] PCP - General Family Medicine 07/30/21
== END 2024-12-13 11:32 | disposition home or self-care (01) ==
PROVIDERS: PCP Family Medicine; Visit Provider Physician Assistant Medical
DX: R53.83 Other fatigue (principal); G47.9 Sleep disorder, unspecified; M62.838 Other muscle spasm
CPT/HCPCS: 99214

== ENCOUNTER → 2024-12-13 10:23 | Outpatient (BNVA) | payer MEDICARE, SELFPAY | PROVIDERS: PCP Family Medicine; Visit Provider Physician Assistant Medical | DX: G47.30 Sleep apnea, unspecified (principal); R53.83 Other fatigue; M62.838 Other muscle spasm; Z99.89 Dependence on other enabling machines and devices | CPT/HCPCS: 99212 ==

== ENCOUNTER 2025-03-18 08:51 | Outpatient (AMB) | payer MEDICARE, SELFPAY ==
[2025-03-18 08:58] VITALS: BP 116/70; PULSE 76; O2SAT 99; BMI 25.4
--- NOTE | 2025-03-18 08:58 | A.OFFVIS_ITS ---
Vital Signs 03/18/25 08:58 Height 5 ft 3 in Weight 143 lb 2 oz BMI 25.4 BP 116/70 Blood Pressure Location Lt brachial Position Sitting Pulse 76 Pulse Source Pulse Oximeter Pulse Oximetry (%) 99 Oxygen Delivery Method Room Air Intake Visit Reasons: 3 mo follow up Intake Note: Patient presents follow up GHANSHYAM. Labs/compliance in chart(89/90 days, >=4hrs-99%, Average usage- 7hrs 24min, Med pressure-7.3, Med leaks-0.0, AHI-0.9). Allergies penicillin G Allergy (Mild, Verified 03/18/25 09:01) Hives Sulfa (Sulfonamide Antibiotics) Allergy (Mild, Verified 03/18/25 09:01) Hives HPI Comments Details: 70 y/o female patient presents for follow up of neuropathy. HST was significant for mild sleep apnea, AHI was 11 and Oxygen Benjamín to 88%. GHANSHYAM Compliance Report 12/2024- 03/2025 total days used 89/90 days, and >4 hours 89% Avg press are 7.3, leaks are 0.8 AHI is 0.9/hr. She is on AutoPAP 5-20 cm of water and uses her CPAP daily. She is doing very well on her cpap, however still gets up 1x a night and is able to get about 7 hours a night of sleep. She has MS and is followed by the [facility] for management and did not want to do infusions at this. She did have a fall over 6 months ago and did not hit her head, got up and now uses her AFO. She has been to PT several times for gait and balance training, she started using a tensile cord device for her foot drop. She says her spasms of the L. feet, calf and thigh muscle are better managed with 300mg Gabapentin and 40-50mg Baclofen daily TID. She walks for about 10 min and stretches her legs as needed mainly the L>R with spasms. She cleans her mask, changes the filters and fills the reservoir with water as needed. Labs reviewed [facility] Víctor Sherman PCP 01/03/2025. [facility] Medical History Age related osteoporosis Surgical History Hx of appendectomy Family History Father No problems noted. Mother Asthma Social History Household Members: Spouse Housing: House Alcohol intake: current Patient Tobacco Use Status: Never used Tobacco Review of Systems ENT Reports Normal hearing present Neuro Reports Normal hearing present Physical Exam Vital Signs: Last Vital Signs Pulse 76 03/18/25 08:58 BP 116/70 03/18/25 08:58 Pulse Ox 99 03/18/25 08:58 Oxygen Delivery Method Room Air 03/18/25 08:58 BMI result Body Mass Index 25.4 Const General: cooperative and tired appearing Orientation/consciousness: patient oriented x3 Eyes Pupils: Equal, round and reactive pupils present Resp Effort & Inspection: normal respiratory effort and able to speak in complete sentences Neuro Other: left foot drop wears a AFO and gait - high steppage General: patient oriented x3 and moves all extremities Cranial nerves: Yes Facial sensation intact/muscles of mastication intact, Yes Equal, round and reactive pupils present, Yes Normal accommodation reflex present, Yes Normal facial strength present, Yes Midline tongue present, Yes Normal hearing present, Yes Ability to bilaterally rotate head present and Yes Ability to bilaterally elevate shoulders present Motor exam (neuro): 5/5 motor strength present throughout and Normal motor muscle tone present throughout Deep tendon reflexes (DTR's): Right triceps reflex intensity grade: 2+, Left triceps reflex intensity grade: 2+, Rt Biceps (C5, C6): 2+, Left biceps reflex intensity grade: 2+, Right brachioradialis reflex intensity grade: 2+, Left brachioradialis reflex intensity grade: 2+, Right patellar reflex intensity grade: 3+ and Left patellar reflex intensity grade: 3+ Psych Appearance: grossly normal Affect: normal affect Thought content: Normal thought content present Results Reviewed Results Reviewed: GHANSHYAM Compliance Report 12/2024- 03/2025 total days used 89/90 days, and >4 hours 89% Avg press are 7.3, leaks are 0.8 AHI is 0.9/hr. Labs 01/03/2025 Ferritin is low normal, MMA and Homocysteine are low normal, start B12 1000mcg daily at bedtime. Assessment & Plan Assessment & Plan (1) Fatigue due to sleep pattern disturbance: Code(s): R53.83 - Other fatigue; G47.9 - Sleep disorder, unspecified Category: Medical (2) Muscle spasm of left lower extremity: Code(s): M62.838 - Other muscle spasm Category: Medical (3) Low ferritin: Code(s): R79.0 - Abnormal level of blood mineral Category: Medical Plan PLMD / RLS/ Spasms of L leg, continue Gabapentin 300mg PO daily at bedtime. Continue PT at [facility] and use AFO with tensile cord device for foot drop to prevent falls. Labs show low normal ferritin and B12 functionally low due to MMA and Ho mocysteine being low normal. Start otc magnilife cream for RLS, start b12 otc 1000mcg daily, ferritin is low start iron 325 mcg daily, if getting constipated may increase water and take iron every 2 days instead of daily. F/U 6 months. Declines Biopsy of L. gastrocnemius today. Medications: New ferrous sulfate take one 325mg tablet at lunch time with 1/2 glass of orange juice daily. 325 mg PO DAILY 3 months 90 tabs 0RF low ferritin MDD 325 mg G47.9 - Sleep disorder, unspecified, R53.83 - Other fatigue, R79.0 - Abnormal level of blood mineral Patient Instructions: Sleep Hygiene provided: set a scheduled bedtime and wake time to help regulate the circadian rhythm and balance the release of pituitary hormones. Sleep in a dark room, temperatures below 68 degrees, and no devices n bed. Limit caffeinated products 6 hours prior to bed, and limit fluids 2-4 hours prior to bed. Gentle night yoga, diffusing essential oils, and playing soft music can be relaxing. Coding Level of Care Code Est Pt Level 4 (04439) Diagnoses Fatigue due to sleep pattern disturbance R53.83; G47.9 Muscle spasm of left lower extremity M62.838 Low ferritin R79.0 Time Spent (min) 15 Comment improving
--- OUTSIDE RECORDS SUMMARY | 2025-03-18 09:02 | XMS_ITS | Clinical Summary ---
Author Organization 175 [facility] Address [address] [place] [address] Phone Care Team Providers Care Instructor Dramatic Arts Name Role Phone Judith Sherman MD Primary Care Provider [phone] Allergies Active Allergy Reactions Criticality Noted Date [...] mouth. Active rosuvastatin (CRESTOR) 40 mg tablet 1 Active valACYclovir (VALTREX) 500 mg tablet 1 Active gabapentin (NEURONTIN) 600 mg tablet Take 1 tablet (600 mg total) by mouth 3 (three) times a day. 270 tablet 3 4 Active baclofen (LIORESAL) 10 mg tablet 2 po tid 540 each 3 5 Active baclofen (Lyvispah) 10 mg granules in packet Take by mouth. 02/28/20 25 Discontinu ed(Therapy completed) Encounters Date Type Department Care Team Description 02/27/2025 8:30 AM EDT Office Visit [facility] 175 [facility] [address] [place] [address] Rebecca Emanuel PA Multiple sclerosis (CMS/HCC V24, [facility] V28) (Primary Dx) from Last 3 Months Medical History Medical History Date Comments Multiple sclerosis (CMS/HCC V24, CMS/HCC V28) DX:Multiple sclerosis (HCC) Hyperlipidemia DX:Hyperlipidemi a Glaucoma DX:Glaucoma [...] Sign Reading Time Taken Comments Blood Pressure 118/74 02/27/2025 8:24 AM EDT Pulse 69 02/27/2025 8:24 AM EDT Temperature 36.1 ??C (97 ??F) 02/27/2025 8:24 AM EDT Respiratory Rate - - Oxygen Saturation 99% 02/27/2025 8:24 AM EDT Inhaled Oxygen Concentration - - Weight 63.5 kg (140 lb) 08/29/2024 9:12 AM EST Height 162.6 cm (5' 4 ) 08/29/2024 9:12 AM EST Body Mass Index 24.03 08/29/2024 9:12 AM EST Plan of Treatment Upcoming Encounters Date Type Department Care Team (Late st Contact Info) Description 08/30/2025 8:30 AM EST Office Visit [facility] 175 [facility] [address] [place] [address] Orin Machado MD 175 [facility] [address] [place] [phone] Health Maintenance Due Date Last Done Comments [...] Completed 02/19/2019, 02/16/2018 Zoster Vaccines Completed 04/10/2019, 01/09, 11/04/2013 RSV Immunization Adult Patients Completed 08/12/2023 Influenza Vaccine Completed 07/27/2024, , 08/02/2022, Additional history exists COVID-19 Vaccine Completed 01/25/2025, , 07/08/2023, Additional history exists HIB Vaccines Aged Out [...] age to complete this topic Meningococcal B Vaccine Aged Out No l onger eligible based on patient's age to complete this topic RSV Immunization Patients Under 20 months Aged Out No longer eligible based on patient's age to complete this topic Varicella Vaccines Aged Out No longer eligible based on patient's age to complete this topic Insurance MEDICARE [facility] Advance Directives Documents on File Type Date Recorded Patient Group Contract Analyst Expl anation Health Care Decision (hx) 10/01/2011 [...] (hx) 10/01/2011 AD LOPEZ DIRECTIVE Care Teams Instructor Dramatic Arts Relationship Specialty Start Date End Date Judith Sherman MD [address] [place] [phone] PCP - General Family Medicine 07/30/21
== END 2025-03-18 09:32 | disposition home or self-care (01) ==
LOC: HO.HSMS 08:51
PROVIDERS: PCP Family Medicine; Visit Provider Physician Assistant Medical
DX: R53.83 Other fatigue (principal); G47.9 Sleep disorder, unspecified; M62.838 Other muscle spasm; R79.0 Abnormal level of blood mineral
CPT/HCPCS: 99214

== ENCOUNTER → 2025-03-18 08:51 | Outpatient (BNVA) | payer MEDICARE, SELFPAY | PROVIDERS: PCP Family Medicine; Visit Provider Physician Assistant Medical | DX: R53.83 Other fatigue (principal); G47.9 Sleep disorder, unspecified; R79.0 Abnormal level of blood mineral; M62.838 Other muscle spasm | CPT/HCPCS: 99212 ==

== ENCOUNTER 2025-07-08 09:33 | Outpatient (AMB) | payer MEDICARE, SELFPAY ==
[2025-07-08 09:50] VITALS: BP 108/64; PULSE 84; O2SAT 97; BMI 24.7
--- NOTE | 2025-07-08 09:50 | A.OFFVIS_ITS ---
Vital Signs 07/08/25 09:50 Height 5 ft 3 in Weight 139 lb 6 oz BMI 24.7 BP 108/64 Blood Pressure Location Rt brachial Position Sitting Pulse 84 Pulse Source Pulse Oximeter Pulse Oximetry (%) 97 Oxygen Delivery Method Room Air Intake Visit Reasons: Follow up Intake Note: Patient presents follow up GHANSHYAM/muscle spasms medication. Compliance in chart(88/90days, >=4hrs-97%, Average Usage-7hr 16min, Med Pressure-7.3, Med Leaks-0.2, AHI-1.6). Accompanied by: Self / Same As Patient Allergies penicillin G Allergy (Mild, Verified 07/08/25 09:53) Hives Sulfa (Sulfonamide Antibiotics) Allergy (Mild, Verified 07/08/25 09:53) Hives HPI Comments Details: 70 y/o female with MS, presents for a follow up of l. foot spasms and sleep apnea. HST was significant for mild sleep apnea, AHI was 11 and Oxygen Benjamín to 88%. GHANSHYAM Compliance Report 03/2025- 06/2025 Total days used 88/90 days, and >4 hours 97% Avg press are 7.3, Med leaks are 0.2 AHI is 1.6/hr. Washes her mask, rinses hoses, changes filters, fills reservoir with water. She is on AutoPAP 5-20 cm of water and uses her CPAP daily. She is doing very well on her cpap, however still gets up 1x a night and is able to get about 7 hours a night of sleep. She has MS and is followed by the [facility] for management. She denies vision changes, denies headacaches and denies falls. She uses her uses her AFO for the l. foot as she will have foot drop. She has been to PT several times for gait and balance training, she started using a tensile cord device for her foot drop. She says her spasms of the l. foot, calf and thigh muscle are better managed with 300mg Gabapentin and Baclofen 10mg qam, 10mg qnoon, and 20qpm TID daily. She walks for 10 min and stretches her legs as needed mainly the L>R with spasms. She goes to the gym 3x a week. [facility] Medical History Age related osteoporosis Surgical History Hx of appendectomy Family History Father No problems noted. Mother Asthma Social History Household Members: Spouse Housing: House Alcohol intake: current Patient Tobacco Use Status: Never used Tobacco Review of Systems ENT Reports Normal hearing present Neuro Reports Normal hearing present Physical Exam Vital Signs: Last Vital Signs Pulse 84 07/08/25 09:50 BP 108/64 07/08/25 09:50 Pulse Ox 97 07/08/25 09:50 Oxygen Delivery Method Room Air 07/08/25 09:50 BMI result Body Mass Index 24.7 Const General: cooperative and tired appearing Orientation/consciousness: patient oriented x3 Eyes Pupils: Equal, round and reactive pupils present Resp Effort & Inspection: normal respiratory effort and able to speak in complete sentences Neuro Other: left foot drop wears a AFO and gait - high steppage General: patient oriented x3 and moves all extremities Cranial nerves: Yes Facial sensation intact/muscles of mastication intact, Yes Equal, round and reactive pupils present, Yes Normal accommodation reflex present, Yes Normal facial strength present, Yes Midline tongue present, Yes Normal hearing present, Yes Ability to bilaterally rotate head present and Yes Ability to bilaterally elevate shoulders present Motor exam (neuro): 5/5 motor strength present throughout and Normal motor muscle tone present throughout Psych Appearance: grossly normal Affect: normal affect Thought content: Normal thought content present Results Reviewed Results Reviewed: GHANSHYAM Compliance Report 03/2025- 06/2025 Total days used 88/90 days, and >4 hours 97% Avg press are 7.3, Med leaks are 0.2 AHI is 1.6/hr. Washes her mask, rinses hoses, changes filters, fills reservoir with water. Assessment & Plan Assessment & Plan (1) Fatigue due to sleep pattern disturbance: Code(s): R53.83 - Other fatigue; G47.9 - Sleep disorder, unspecified Category: Medical (2) Muscle spasm of left lower extremity: Code(s): M62.838 - Other muscle spasm Category: Medical (3) Low ferritin: Code(s): R79.0 - Abnormal level of blood mineral Category: Medical Plan PLMD / RLS/ Spasms of L leg, continue Gabapentin 400mg PO daily at bedtime. Continue PT at [facility] and use AFO with tensile cord device for foot drop to prevent falls. Labs show low normal ferritin and B12 functionally low due to MMA and Homocysteine being low normal. Start otc magnilife cream for RLS, start b12 otc 1000mcg daily, Ferritin is low start iron 325 mcg daily, if getting constipated may increase water and take iron every 2 days instead of daily. F/U 6 months. Patient Instructions: Sleep Hygiene provided: set a scheduled bedtime and wake time to help regulate the circadian rhythm and balance the release of pituitary hormones. Sleep in a dark room, temperatures below 68 degrees, and no devices n bed. Limit caffeinated products 6 hours prior to bed, and limit fluids 2-4 hours prior to bed. Gentle night yoga, diffusing essential oils, and playing soft music can be relaxing. Coding Level of Care Code Est Pt Level 4 (44348) Diagnoses Fatigue due to sleep pattern disturbance R53.83; G47.9 Muscle spasm of left lower extremity M62.838 Low ferritin R79.0
--- OUTSIDE RECORDS SUMMARY | 2025-07-08 10:24 | XMS_ITS | Clinical Summary ---
Author Organization 175 [facility] Address [address] [place] [address] Phone Care Team Providers Care Production Sorter Name Role Phone Judith Sherman MD Primary Care Provider [phone] Allergies Active Allergy Reactions Criticality Noted Date [...] day. 270 tablet 3 08/29/2024 Active baclofen (LIORESAL) 10 mg tablet 2 po tid 540 each 3 02/27/2025 Active Medical History Medical History Date Comments Multiple sclerosis DX:Multiple s clerosis (HCC) Hyperlipidemia DX:Hyperlipidemi a Glaucoma DX:Glaucoma Social [...] 69 02/27/2025 8:24 AM EDT Temperature 36.1 C (97 F) 02/27/2025 8:24 AM EDT Respiratory Rate - - Oxygen Saturation 99% 02/27/2025 8:24 AM EDT Inhaled Oxygen Concentration - - Weight 63.5 kg (140 lb) 08/29/2024 9:12 AM EST Height 162.6 cm (5' 4 ) 08/29/2024 9:12 AM EST Body Mass Index 24.03 08/29/2024 9:12 AM EST Plan of Treatment Upcoming Encounters Date Type Department Care Team (Late st Contact Info) Description 08/29/2025 10:00 AM EST Office Visit [facility] 175 [facility] [address] [place] [phone] Orin Machado MD [address] [place] [address] Health Maintenance Due Date Last Done Comments Breast Cancer Screening 1955 Cholesterol Screening (Lipid Panel) 09/17/2022 Colorectal Cancer Screening: Colonoscopy 09/17/2022 Falls Risk Assessment 09/17/2022 Hepatitis C Screening 09/17/2022 Medicare Annual Wellness Visit 09/17/2022 Osteoporosis Screening (Bone Density Screening) 09/17/2022 Social Influencers of Health Screening 09/17/2022 Depression Screening 10/10/2024 Influenza Vaccine (#1) 2025 , 06/24/2023, 08/02/2022, Additional history exists DTaP,Tdap,and Td Vaccines (4 - Td or Tdap) 06/02/2031 06/02/2021, 04/04/2011, 04/07/2009 Pneumococcal Vaccine: 50+ Years Completed 02/19/2019, 02/16/2018 Zoster Vaccines Completed 04/10/2019, 01/09, 11/04/2013 RSV Immunization Adult Patients Completed 08/12/2023 COVID-19 Vaccine Completed 01/25/2025, , 07/08/2023, Additional [...] age to complete this topic Insurance MEDICARE [facility] Advance Directives Documents on File Type Date Recorded Patient Senior Biostatistician/Group Leader Expl anation Health Care Decision (hx) 10/01/2011 [...] (hx) 10/01/2011 AD LOPEZ DIRECTIVE Care Teams Production Sorter Relationship Specialty Start Date End Date Judith Sherman MD [address] [place] [phone] PCP - General Family Medicine 07/30/21
--- OUTSIDE RECORDS SUMMARY | 2025-07-08 10:24 | XMS_ITS | Clinical Summary ---
Author Organization [facility] Address [address] [place] [address] [place] [phone] Phone Care Team Providers Care Die Cast Engineer Name Role Phone Judith Sherman MD Primary Care Provider [phone] Allergies Active Allergy Reactions Criticality Noted Date Comments Penicillins Other (See Comments) 07/14/2009 hives Sulfa (Sulfonamide Antibiotics) Other (See Comments) 07/14/2009 hies Medications cycloSPORINE (RESTASIS) 0.05 % suspension 1 into affected eye Active latanoprost (XALATAN) 0.005 % ophthalmic solution 9 Active progesterone (PROMETRIUM) 100 mg capsule Take 100 mg by mouth daily. 9 Active rosuvastatin (CRESTOR) 40 MG tablet 1 tablet Active valACYclovir (VALTREX) 500 MG tablet Take 500 mg by mouth daily. 9 Active gabapentin (NEURONTIN) 300 MG capsule Take 300 mg by mouth daily as needed. Active baclofen (LIORESAL) 10 MG tablet Take 10 mg by mouth daily. Active estradioL (CLIMARA) 0.05 mg/[address] 1 patch onto the skin. Active buPROPion (WELLBUTRIN XL) 300 MG ER 24 hr tablet 0 Active aspirin 81 MG EC tabletIndicatio ns:myocardial infarction prevention Take 81 mg by mouth daily. Indications: treatment to prevent a heart attack Active cholecalciferol (VITAMIN D3) 25 MCG (1,000 unit) tablet Take 1,000 Units by mouth daily. Active Active Problems No known active problems Encounters Date Type Department Care Team Description 06/26/2025 9:20 AM EDT Office Visit [facility] [address] [place] [address] Zach Ramos MD Disorder of sacrum (Primary Dx) 05/29/2025 Transcribe Orders [facility] [address] [place] [address] Jonnathan, Sanhit Lumbago with sciatica, unspecified side (Primary Dx) from Last 3 Months Family History Medical History Relation Comments Heart disease Father Hypertension Father Asthma Mother Relation Status Comments Father Mother Social History Tobacco Use Types Packs/Day Years Used Date Smoking Tobacco: Never Smokeless Tobacco: Never Alcohol Use Standard Drinks/Week Comments Not Currently 2 (1 standard drink = 0.6 oz pur e alcohol) Education Answer Date Recorded Are you interested in more education? Not on slim e 02/08/2023 Are you concerned about learning? Not on file 02/08/2023 No 02/08/2023 No 02/08/2023 Digital Access Answer Date Recorded No 03/06/2023 No 03/06/2023 Reliable internet access at home? Not on file 03/06/2023 Device with a working camera? Not on file Comments No Sex and Gender Information Value Date Recorded Sex Assigned at Female 03/31/2020 12:03 PM EDT Legal Sex Female 5:59 PM EST Gender Identity Female 03/31/2020 12:03 PM EDT Sexual Orientation Straight 03/31/2020 12 :03 PM EDT Last Filed Vital Signs Vital Sign Reading Time Taken Comments Blood Pressure 121/78 06/26/2025 9:21 AM EDT Pulse 77 06/26/2025 9:21 AM EDT Temperature 36.2 C (97.2 F) 09/30/2020 1:48 PM EST Respiratory Rate 17 09/30/2020 2:02 PM EST Oxygen Saturation 97% 06/26/2025 9:21 AM EDT Inhaled Oxygen Concentration - - Weight 62.7 kg (138 lb 3.2 oz) 10/20/2023 4:16 P M EST Height 160 cm (5' 3 ) 10/20/2023 4:16 PM EST Body Mass Index 24.48 10/20/2023 4:16 PM EST Plan of Treatment Upcoming Encounters Date Type Department Care Team (Late st Contact Info) Description 08/07/2025 11:40 AM EDT Telemedicine - audio only [facility] [address] [place] [address] [place] [address] Zach Ramos MD 22 [facility], 2nd [place] [address] 10/08/2025 Procedure Pass [facility] Admitting [facility] Virtual Department [address] [place] [phone] 10/08/2025 11:00 AM EST Hospital Encounter [facility] Virtual Department [address] [place] [address] Saeed Bermudez MD [address] [place] [phone] [email or web address] 10/08/2025 11:00 AM EST - 10/08/2025 11:15 AM EST Surgery [facility] Admitting Dept Virtual Department [address] [place] [address] Saeed Bermudez MD [address] [place] [address] COLONOSCOPY 11/21/2025 2:15 PM EST Appointment [facility], Bone Density - [address] [address] Judith Sherman MD [address] [place] [phone] Scheduled Procedures Name Priority Associated Diagnoses Date/Ti me COLONOSCOPY History of colon polyps 10/08/2025 11:00 AM EST Health Maintenance Due Date Last Done Comments LIPID PANEL 1955 HEPATITIS C SCREENING 1971 MAMMOGRAM 1993 COLOGUARD 1998 FIT TEST 1998 FOBT 1998 SIGMOIDOSCOPY 1998 VIRTUAL COLONOSCOPY 1998 OSTEOPOROSIS SCREENING INITIAL (ONE-TIME) 2018 DEPRESSION SCREENING 03/31/2021 03/31/2020 INFLUENZA VACCINE (#1) 2025 2, 07/13/2021, 07/25/2020, Additional history exists COVID-19 VACCINE (2024- season) 2025 07/10/2022, 01/14/2022, 08/04/2021, Additional history exists RSV VACCINE (1 - 1-dose 75+ series) 02/08/2028 COLONOSCOPY 09/30/2030 09/30/2020 COLORECTAL CANCER SCREENING 09/30/2030 Adult Td,Tdap Booster 06/02/2031 06/02/2021 , 04/04/2011, 04/07/2009 PNEUMOCOCCAL VACCINES (50+ years) Completed 02/19/2019, 02/16/2018 ZOSTER VACCINES Completed 04/10/2019, 01/09, 11/04/2013 SMOKING STATUS SCREENING (Once After 26 Yrs) Completed 10/20/2023 HEPATITIS A VACCINES Aged Out No long er eligible based on patient's age to complete this topic HIB VACCINES Aged Out No longer eligi ble based on patient's age to complete this topic MENINGOCOCCAL VACCINES (ACWY) Aged Out No longer eligible based on patient's age to complete this topic MENINGOCOCCAL VACCINES (B) Aged Out N o longer eligible based on patient's age to complete this topic Medical Devices Not on file Procedures Procedure Name Priority Date/Time Associated Diagnosis Comments ENDOSCOPY, COLON 09/30/2020 1:23 PM EST from Last 3 Months or Most Recently Relevant to Health Maintenance Results * ENDOSCOPY, COLON (09/30/2020 1:23 PM EST) Narrative Transcriptions Saeed Bermudez MD - 09/30/2020 1:23 PM EST Patient Name: Betsey Prescottn Attending MD:: SAEED BERMUDEZ MD, Procedure Date: 09/30/2020 1:23 PM Date of : 1955 Age: 65 Admit Type: Outpatient Gender: Female Room: [facility] 04 Referring MD: Judith Sherman MD Exam Type: Colonoscopy Indications: High risk colon cancer surveillance: Personalhistory of colonic polyps Medications: Monitored Anesthesia Care Procedure: Informed consent was obtained from the patient after discussion of the indications, limitations, alternatives, benefits, and risks of the procedure. Risks specifically discussed include but are not limited to medication reactions, missed lesions, bleeding, perforation, or the need for emergentsurgery. Throughout the procedure, the patient's bloodpressure, pulse, end-tidal CO2, and oxygen saturations were monitored continuously. The Olympus pediatric variable colonoscopePCF-[id number] #6 was introduced through the anus and advanced tothe cecum, identified by appendiceal orifice andileocecal valve. The colonoscopy was performed without difficulty. The patient tolerated the procedurewell. The quality of the bowel preparation was excellent.The quality of the bowel preparation was evaluated using the BBPS ([place] Bowel Preparation Scale) withscores of: Right Colon = 3, Transverse Colon = 3 and Left Colon = 3 (entire mucosa seen well with no residual staining, small fragments of stool or opaqueliquid). The total BBPS score equals 9. Complications: No immediate complications. Estimated blood loss:None. Findings: The perianal and digital rectal examinations were normal. Internal hemorrhoids were found during retroflexion. The hemorrhoids were mild. The exam was otherwise normal throughout theexamined colon. Impression: - Internal hemorrhoids. - No specimens collected. Recommendation: - Discharge patient to home. - Repeat colonoscopy in 5 years for surveillance. SAEED BERMUDEZ MD, 09/30/2020 1:54:41 PM This report has been signed electronically. Number of Addenda: 0 Note Initiated On: 09/30/2020 1:23 PM Procedure Code(s): --- Professional --- 51711, Colonoscopy, flexible; diagnostic, including collection of specimen(s) by brushing or washing, when performed (separateprocedure) --- Technical --- 00377, Colonoscopy, flexible; diagnostic, including collection of specimen(s) by brushing or washing, when performed (separateprocedure) Diagnosis Code(s): --- Professional --- Z86.010, Personal history of colonic polyps K64.8, Other hemorrhoids --- Technical --- Z86.010, Personal history of colonic polyps K64.8, Other hemorrhoids CPT copyright 2018 [employer]. All rights reserved. The codes documented in this report are preliminary and upon bulk station operator reviewmay be revised to meet current compliance requirements. Procedure Date: 09/30/2020 1:23:[address] [place] [address] Judith Sherman MD GI PROCEDURE ORDERABLES Fin al Result from Last 3 Months or Most Recently Relevant to Health Maintenance Insurance [place] [id number] [facility] MED PCP REQ SUPPLEMENT MEDICARE PART A & B [facility] MEDEX PCP REQ SUPPLEMENT MEDICARE PART A & B [employer] PCP REQ SUPPLEMENT MEDICARE PART A & B [employer] PCP REQ SUPPLEMENT MEDICARE PART A & B [employer] PCP REQ SUPPLEMENT MEDICARE PART A & B [employer] PCP REQ SUPPLEMENT MEDICARE PART A & B [employer] PCP REQ SUPPLEMENT MEDICARE PART A & B [employer] PCP REQ SUPPLEMENT MEDICARE PART A & B [facility] PCP REQ SUPPLEMENT Care Teams Die Cast Engineer Relationship Specialty Start Date End Date Judith Sherman MD [email or web address] PCP - General 10/13/17 Additional Source Comments The information contained in this document represents components of the legal health record. It is not the complete legal health record.[facility]
--- OUTSIDE RECORDS SUMMARY | 2025-07-08 10:24 | XMS_ITS | Clinical Summary ---
Author Organization [facility] Address [address] [place] [address] Care Team Providers Care Puttying And Calking Supervisor Name Role Phone Judith Sherman MD Primary Care Provider [phone] Allergies Active Allergy Reactions Criticality Noted Date [...] 95 02/28/2024 10:31 AM EDT Temperature 36.4 C (97.6 F) 02/28/2024 10:31 AM EDT Respiratory Rate 16 06/28/2023 9:56 AM EDT [...] 1 - PCV) 2018 Influenza Vaccine (#1) 2025 RSV Adult > 60+ Yrs or Pregn ant (1 - 1-dose 75+ series) 02/08/2028 Hepatitis B Vaccines Aged Out No long er eligible based on patient's age to complete this topic RSV Ped < 20 months Aged Out No longe r eligible based on patient's age to complete this topic Care Teams Puttying And Calking Supervisor Relationship Specialty Start Date End Date Judith Sherman MD [address] [place] [phone] PCP - General Family Medicine 07/30/21
--- OUTSIDE RECORDS SUMMARY | 2025-07-08 10:24 | XMS_ITS | Encounter Summary ---
Author Organization [facility] Address [address] [facility] [address] [place] [phone] Phone Care Team Providers Care Medical Records Secretary Name Role Phone Judith Sherman MD Primary Care Provider [phone] Encounter Details Date Type Department Care Team (Late st Contact Info) Description 09/30/2020 Procedure Pass [facility] Endoscopy Admitting Dept Virtual Department [address] [place] [address] Social History Tobacco Use Types Packs/Day Years Used Date Smoking Tobacco: Never Smokeless Tobacco: Never Alcohol Use Standard Drinks/Week Comments Yes 2 (1 standard drink = 0.6 oz pur e alcohol) Comments No Sex and Gender Information Value Date Recorded Sex Assigned at Female 03/31/2020 12:03 PM EDT Legal Sex Female 5:59 PM EST Gender Identity Female 03/31/2020 12:03 PM EDT Sexual Orientation Straight 03/31/2020 12 :03 PM EDT documented as of this encounter Plan of Treatment Upcoming Encounters Date Type Department Care Team (Late st Contact Info) Description 08/07/2025 11:40 AM EDT Telemedicine - audio only [facility] Spine Medicine [address] [place] [address] Zach Ramos MD [address] [facility]nd [place] [address] 10/08/2025 Procedure Pass [facility] Endoscopy Admitting Dept Virtual Department [address] [place] [address] 10/08/2025 11:00 AM EST Hospital Encounter [facility] Endoscopy Admitting Dept Virtual Department [address] [place] [phone] Saeed Medina MD [address] [place] [address] 10/08/2025 11:00 AM EST - 10/08/2025 11:15 AM EST Surgery [facility] Endoscopy Admitting Dept Virtual Department [address] [place] [address] Saeed Medina MD [address] [place] [phone] COLONOSCOPY 11/21/2025 2:15 PM EST Appointment [facility] - [address] [address] Judith Sherman MD [address] [place] [address] [email or web address] Scheduled Procedures Name Priority Associated Diagnoses Date/Ti me COLONOSCOPY History of colon polyps 10/08/2025 11:00 AM EST documented as of this encounter Visit Diagnoses Not on filedocumented in this encounter Care Teams Medical Records Secretary Relationship Specialty Start Date End Date Judith Sherman MD PCP - General 10/13/17 documented as of this encounter Additional Source Comments The information contained in this document represents components of the legal health record. It is not the complete legal health record.[facility]
== END 2025-07-08 10:22 | disposition home or self-care (01) ==
LOC: HO.HSMS 09:33
PROVIDERS: PCP Family Medicine; Visit Provider Physician Assistant Medical
DX: R53.83 Other fatigue (principal); G47.9 Sleep disorder, unspecified; M62.838 Other muscle spasm; R79.0 Abnormal level of blood mineral
CPT/HCPCS: 99214

== ENCOUNTER → 2025-07-08 09:33 | Outpatient (BNVA) | payer MEDICARE, SELFPAY | PROVIDERS: PCP Family Medicine; Visit Provider Physician Assistant Medical | DX: G47.30 Sleep apnea, unspecified (principal); M62.838 Other muscle spasm; G35 Multiple sclerosis; R79.0 Abnormal level of blood mineral; R53.83 Other fatigue; G47.9 Sleep disorder, unspecified | CPT/HCPCS: 99212 ==

== ENCOUNTER 2025-07-19 08:32 | Outpatient (AMB) | payer MEDICARE, SELFPAY ==
--- NOTE | 2025-07-19 08:41 | MHC.OFFVIS ---
Vital Signs 07/19/25 08:51 Height 5 ft 3 in Weight 135 lb BMI 23.9 Intake Visit Reasons: [employer]-multiple sclerosis Intake Note: Betsey is a 70 year old female who presents today as a new patient for multiple sclerosis. Patient was referred by her PCP at their visit she stated that she is having left lower extremity discomfort that radiates into the left thigh and left calf. At today's visit she states that for the past 25 years she started to have left leg weakness and ever since then the left leg has increased over the years. 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 Patient states that she has attended physical therapy, at home exercises and injections. Patient states that she has been seen by Neurology and sleep study. Allergies penicillin G Allergy (Mild, Verified 07/19/25 08:51) Hives Sulfa (Sulfonamide Antibiotics) Allergy (Mild, Verified 07/19/25 08:51) Hives Medication List - Last Reconciled 07/19/25 by Cathi Sotelo MD alendronate 5 mg PO QWEEK baclofen 10 mg PO TID bupropion HCl XL 150 mg PO DAILY cyclosporine 0.05% (Restasis) 1 drp ophthalmic (eye) Q12H ergocalciferol (vitamin D2) 1,250 mcg PO QWEEK estradiol 1 patch transdermal QWEEK ferrous sulfate 325 mg PO DAILY 3 months MDD 325 mg gabapentin 300 mg PO BEDTIME gabapentin 100 mg PO BEDTIME 90 days MDD 400mg latanoprost 0.005% 0 drps ophthalmic (eye) magnesium oxide 400 mg PO DAILY 90 days progesterone micronized 100 mg PO BEDTIME rosuvastatin 40 mg PO DAILY valacyclovir 500 mg PO DAILY HPI Comments Details: History of multiple sclerosis. Follows with [facility] and with our Neurology Department. Referred to physiatry for question of spasticity on left lower extremity. Chronic foot drop, wears left AFO at least 2-3 years. Left leg weakness gradually progressed over 25 years. Described as Can't make it do what I want to do . But denies stiffness. But she does report spasms, mostly at night wakes her up, but not painful. She has tried Botox under Dr. Staton but didn't really do anything for her , probably 5 years. She had injections in the calf. Patient is on gabapentin 200mg total before bedtime; and baclofen 50mg total for the day, anthing higher would give her headaches, but lessens spasms at night. Did not bring cane or walker today. She uses walking sticks or a zachary for left leg when walking dog. [facility] Medical History Age related osteoporosis Surgical History Hx of appendectomy Family History Father No problems noted. Mother Asthma Social History Household Members: Spouse Housing: House Alcohol intake: current Patient Tobacco Use Status: Never used Tobacco Review of Systems Const All systems reviewed & are unremarkable except as noted in HPI and below Physical Exam Exam Exam: Appears to have clonus on left foot with gait. But no clonus at rest. Negative Babinski. At rest, left foot is dorsiflexed, inverted, with left big toe extended and the rest of the toes flexed. I can passively range left ankle to neutral without any pain. Halley 2. No stiffness noted on left quads or hamstrings but patient reports that at times, left knee extends out. 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 The difference of spasticity versus regular muscle spasms. And how it comes from multiple sclerosis. Discussed that not all spasticity is harmful or should be completely removed. He thinks she is using some degree of that stiffness to help her walk. I think botulinum toxin injections would believe move too much spasticity that she would feel even more weak on the left leg. Since she is not complaining of pain, we agreed that there is no indication for botulinum toxin injection. However I would recommend an additional 10 mg of baclofen in the middle of the night when she has woken up with the spasms. Discussed side effects and precautions. Other options for that rescue medication at night would be tizanidine or Valium. We will also continue to monitor lower back and hip pain, which most likely secondary due to her gait. Assessment and plan discussed with patient, and patient was agreeable. All questions were answered thoroughly. Total of 45 minutes spent today including chart review, results review, history taking, physical examination, discussion of assessment and plan, and coordination of care. 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
--- OUTSIDE RECORDS SUMMARY | 2025-07-19 08:46 | XMS_ITS | Clinical Summary ---
Author Organization [facility] Address [address] [place] [address] Care Team Providers Care Promotion Officer Name Role Phone Judith Sherman MD Primary Care Provider [phone] Allergies Active Allergy Reactions Criticality Noted Date [...] age to complete this topic Care Teams Promotion Officer Relationship Specialty Start Date End Date Judith Sherman MD [address] [place] [phone] PCP - General Family Medicine 07/30/21
[2025-07-19 08:51] VITALS: BMI 23.9
== END 2025-07-19 09:51 | disposition home or self-care (01) ==
LOC: HO.HOS 08:32
PROVIDERS: PCP Family Medicine; Visit Provider Physical Medicine & Rehabilitation
DX: R25.2 Cramp and spasm (principal); G83.10 Monoplegia of lower limb affecting unspecified side
CPT/HCPCS: 99204; G2211

== ENCOUNTER → 2025-07-19 08:32 | Outpatient (BNVA) | payer MEDICARE, SELFPAY | PROVIDERS: PCP Family Medicine; Visit Provider Physical Medicine & Rehabilitation | DX: G35.D Multiple sclerosis, unspecified (principal); R25.2 Cramp and spasm; G83.10 Monoplegia of lower limb affecting unspecified side | CPT/HCPCS: 99202 ==